=== PATIENT | female | born 1955 | race Caucasian/White ===

== ENCOUNTER 2018-10-30 20:39 | Emergency (ER) | payer BC ==
[2018-10-30] MEDS ORDERED: LABETALOL HCL 5 MG/ML 20 ML MDV IVP ONE (21:06)
--- NOTE | 2018-10-30 21:08 | EDPHY ---
H & P Time Seen by Provider: 10/30/18 20:56 HPI/ROS: CHIEF COMPLAINT: Cough HISTORY OF PRESENT ILLNESS: Patient is a 63-year-old female who presents emergency department from urgent care with a diagnosis of "congestive heart failure."Patient states that she has been in her normal state of health without significant complaints. She does take medication for high blood pressure. On Wednesday she developed a cough. This is been fairly constant and nonproductive. She denies any chest pain. No fevers or chills. The patient has had ongoing bilateral ankle swelling for the past year. Patient went to urgent care this evening. A chest x-ray was performed. She was told that she had fluid and CHF. She was sent to the emergency department for further evaluation. REVIEW OF SYSTEMS: 10 systems were reveiwed and are negative with the exception of the elements mentioned in the history of present illness. Past Medical/Surgical History: Includes hypertension Social history: Patient does not smoke Smoking Status: Never smoked Physical Exam: The vitals noted. Hypertensive. Constitutional: Initial Vital Signs Temperature (C) 36.5 C 10/30/18 20:45 Heart Rate 79 10/30/18 20:45 Respiratory Rate 20 10/30/18 20:45 Blood Pressure 233/99 H 10/30/18 20:45 O2 Sat (%) 98 10/30/18 20:45 O2 Delivery Mode Room Air O2 (L/minute) 2 Allergies/Adverse Reactions: Penicillins Allergy (Verified 10/30/18 20:44) Sulfa (Sulfonamide Antibiotics) Allergy (Verified 10/30/18 20:44) Home Medications: Medication Instructions Recorded Losartan Potassium 10/30/18 Medical Decision Making ED Course/Re-evaluation: In the emergency department I discussed possible etiologies with the patient. I answered all her questions. I reviewed the imaging studies from urgent care. Chest x-ray: Borderline cardiac enlargement with central pulmonary vascular prominence. No effusion. EKG shows normal sinus rhythm, normal rate, normal axis, normal intervals. LVH There are no ST or T-wave abnormalities. The patient was noted to be significantly hypertensive. I was concerned with her cough and vascular congestion on chest x-ray that her significant blood pressure could be a contributor. She is given labetalol 10 mg IV. Nurse informed me that the patient's blood pressure had dropped to the 170 systolic prior to labetalol administration. CBC and chemistry unremarkable. Troponin negative. BNP is 58. I discussed case with Cardiology. It is noted the patient's pedal edema is been present for a year. The patient's chest x-ray shows borderline LVH with mild central congestion. There is no florid pulmonary edema. Patient's BNP is 58. Patient will be discharged with close follow-up to Cardiology tomorrow the next day. They will arrange outpatient evaluation of her blood pressure and borderline cardiomegaly. Patient was given warnings prior to leaving. She will return worsening symptoms. Differential Diagnosis: My differential includes but is not limited to ACS, acute LA, CHF, hypertensive urgency, hypertensive emergency, bronchitis, pneumonia, pulmonary embolus, mass - Data Points Laboratory Results: Laboratory Results 10/30/18 21:03 10/30/18 21:03 10/30/18 10/30/18 10/30/18 21:07 21:03 21:03 WBC 7.71 10^3/uL 10^3/uL (3.80-9.50) RBC 5.10 10^6/uL 10^6/uL (4.18-5.33) Hgb 14.3 g/dL g/dL (12.6-16.3) Hct 43.0 % % (38.0-47.0) MCV 84.3 fL fL (81.5-99.8) MCH 28.0 pg pg (27.9-34.1) MCHC 33.3 g/dL g/dL (32.4-36.7) RDW 13.0 % % (11.5-15.2) Plt Count 300 10^3/uL 10^3/uL (150-400) MPV 9.5 fL fL (8.7-11.7) Neut % (Auto) 45.7 % % (39.3-74.2) Lymph % (Auto) 45.9 % H % (15.0-45.0) [place] % (Auto) 5.6 % % (4.5-13.0) Eos % (Auto) 1.7 % % (0.6-7.6) Baso % (Auto) 0.8 % % (0.3-1.7) Nucleat RBC Rel Count 0.0 % % (0.0-0.2) Absolute Neuts (auto) 3.53 10^3/uL 10^3/uL (1.70-6.50) Absolute Lymphs (auto) 3.54 10^3/uL H 10^3/uL (1.00-3.00) Absolute Monos (auto) 0.43 10^3/uL 10^3/uL (0.30-0.80) Absolute Eos (auto) 0.13 10^3/uL 10^3/uL (0.03-0.40) Absolute Basos (auto) 0.06 10^3/uL 10^3/uL (0.02-0.10) Absolute Nucleated RBC 0.00 10^3/uL 10^3/uL (0-0.01) Immature Gran % 0.3 % % (0.0-1.1) Immature Gran # 0.02 10^3/uL 10^3/uL (0.00-0.10) Sodium 136 mEq/L mEq/L (135-145) Potassium 4.4 mEq/L mEq/L (3.5-5.2) Chloride 101 mEq/L mEq/L (97-110) Carbon Dioxide 27 mEq/l mEq/l (22-31) Anion Gap 8 mEq/L mEq/L (6-14) BUN 16 mg/dL mg/dL (7-23) Creatinine 0.7 mg/dL mg/dL (0.6-1.0) Estimated GFR > 60 Glucose 101 mg/dL H mg/dL (70-100) Calcium 9.7 mg/dL mg/dL (8.5-10.4) POC Troponin I 0.00 ng/mL ng/mL (0.00-0.08) NT-Pro-B Natriuret Pep 58 pg/mL pg/mL (0-125) Medications Given: Discontinued Medications Labetalol HCl (Trandate Injection) 10 mg IVP ONCE ONE Stop: 10/30/18 21:07 Last Admin: 10/30/18 21:13 Dose: 10 mg Point of Care Test Results: Chemistry 10/30/18 21:07 POC Troponin I 0.00 ng/mL ng/mL (0.00-0.08) Departure - Departure Disposition: Home, Routine, Self-Care Clinical Impression: Cough Hypertension Qualifiers: Hypertension type: unspecified Qualified Code(s): I10 - Essential (primary) hypertension Condition: Good Instructions: Hypertension (ED) Additional Instructions: I discussed her case with Cardiology. They will call tomorrow to make an appointment in 1-2 days. Return to the emergency department with increasing chest pain, shortness of breath or any other concerns. Referrals: [facility] [Other] - 2-3 days, call for appt. [facility] [Provider Group] - 1-2 days without fail
[2018-10-30 21:46] LABS: PLATELET COUNT 300 10^3/uL (150-400)
[2018-10-30 22:27] VITALS: BP 191/100
--- NOTE | 2018-10-30 22:31 | CPEKG ---
Test Reason : OPEN Blood Pressure : / mmHG Vent. Rate : 079 BPM Atrial Rate : 079 BPM P-R Int : 161 ms QRS Dur : 093 ms QT Int : 385 ms P-R-T Axes : 043 006 033 degrees QTc Int : 442 ms Sinus rhythm Low voltage, precordial leads Left ventricular hypertrophy Confirmed by Juanita Gauthier ([id number] on 10/30/2018 10:30:34 PM Referred By: Juanita Gauthier Confirmed By:Juanita Gauthier
== END 2018-10-30 22:25 | disposition home or self-care (01) ==
DX: R05 Cough (principal); I10 Essential (primary) hypertension; I50.9 Heart failure, unspecified; Z88.0 Allergy status to penicillin; Z88.2 Allergy status to sulfonamides
CPT/HCPCS: 84484-ER; 96374